=== PATIENT | male | born 1985 | race Caucasian/White ===

== ENCOUNTER 2016-11-22 09:09 | Emergency (ER) | payer OTHER ==
[2016-11-22 09:21] VITALS: TEMP 97.7; BMI 32.3
[2016-11-22] MEDS ORDERED: IBUPROFEN 600 MG TABLET (FP) PO ONE ×2 (09:36→09:43)
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
[2016-11-22 10:46] VITALS: BP 135/89; PULSE 85
== END 2016-11-22 10:46 | disposition home or self-care (01) ==
LOC: JER 09:09
DX: M54.5 Low back pain (principal); X58.XXXA Exposure to other specified factors, initial encounter; Y93.89 Activity, other specified; Y92.89 Other specified places as the place of occurrence of the external cause; Y99.0 Civilian activity done for income or pay
CPT/HCPCS: 99282-25

== ENCOUNTER 2022-11-15 04:40 | Emergency (ER) | payer OTHER ==
[2022-11-15 05:01] VITALS: BP 129/83; PULSE 98; RESP 17; TEMP 97.6; BMI 31.6
[2022-11-15] MEDS ORDERED: IBUPROFEN 600 MG TABLET (FP) PO ONE ×2 (05:14→05:17)
== END 2022-11-15 06:15 | disposition home or self-care (01) ==
LOC: JER 04:40
DX: S39.012A Strain of muscle, fascia and tendon of lower back, initial encounter (principal); X50.0XXA Overexertion from strenuous movement or load, initial encounter; Y93.I9 Activity, other involving external motion; Y99.0 Civilian activity done for income or pay
CPT/HCPCS: 99282-25

== ENCOUNTER 2024-04-23 18:57 | Emergency (ER) | payer OTHER ==
[2024-04-23 19:09] VITALS: BP 116/75; PULSE 108; RESP 17; TEMP 98.2; BMI 31.6
[2024-04-23] MEDS ORDERED: CYCLOBENZAPRINE HCL 10 MG TABLET (FP) ONE (20:41)
[2024-04-23] MEDS ORDERED: IBUPROFEN 400 MG TABLET (FP) PO ONE (20:41)
[2024-04-23] MEDS: IBUPROFEN 400 MG TABLET (FP) PO ONE (20:47)
[2024-04-23] MEDS: CYCLOBENZAPRINE HCL 10 MG TABLET (FP) PO ONE (20:47)
== END 2024-04-23 20:59 | disposition home or self-care (01) ==
LOC: JERFT 18:57
DX: M54.50 Low back pain, unspecified (principal)
CPT/HCPCS: 99283-25

== ENCOUNTER 2024-09-19 18:25 | Emergency (ER) | payer OTHER ==
[2024-09-19 18:49] VITALS: BP 138/94; PULSE 86; RESP 18; TEMP 98; BMI 31.4
[2024-09-19] MEDS ORDERED: KETOROLAC TROMETHAMINE 15 MG/ML VIAL ONE (19:14)
[2024-09-19] MEDS ORDERED: LIDOCAINE 4% PATCH TP ONE (19:14)
[2024-09-19] MEDS: KETOROLAC TROMETHAMINE 15 MG/ML VIAL IM ONE (19:52)
[2024-09-19] MEDS: LIDOCAINE 5% TOPICAL PATCH TP ONE (19:52)
[2024-09-19] MEDS ORDERED: LIDOCAINE PATCH REMOVAL MC SCH (22:00)
== END 2024-09-19 21:34 | disposition home or self-care (01) ==
LOC: JERFT 18:25 → JER 18:25 → JERFT 21:34
PROC: 3E0133Z Introduction of Anti-inflammatory into Subcutaneous Tissue, Percutaneous Approach (ICD-10-PCS; principal; 2024-09-19)
DX: M79.10 Myalgia, unspecified site (principal)
CPT/HCPCS: 99284-25